=== PATIENT | male | born 1965 | race African-American/Black ===

== ENCOUNTER 2018-05-14 17:52 | Emergency (ER) | payer OTHER ==
[2018-05-14 18:08] VITALS: BP 126/80; PULSE 97; TEMP 98.8; BMI 34.8
[2018-05-14] MEDS ORDERED: ACETAMINOPHEN 325 MG TABLET (FP) PO ONE (19:00)
[2018-05-14] MEDS ORDERED: ACETAMINOPHEN 325 MG TABLET (FP) ONE (19:01)
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
== END 2018-05-14 20:01 | disposition home or self-care (01) ==
LOC: JERFT 17:52
DX: S20.211A Contusion of right front wall of thorax, initial encounter (principal); S20.212A Contusion of left front wall of thorax, initial encounter; S80.212A Abrasion, left knee, initial encounter; Y04.2XXA Assault by strike against or bumped into by another person, initial encounter; Y93.89 Activity, other specified; Y92.118 Other place in children's home and orphanage as the place of occurrence of the external cause; Y99.0 Civilian activity done for income or pay
CPT/HCPCS: 71111-TC-FY; 73562-TC-LT-FY; 99281-25